=== PATIENT | female | born 1960 | race Caucasian/White ===

== ENCOUNTER → 2016-05-21 | Outpatient (CLI) | payer OTHER ==
[~2016-05-21] MED LIST: ACET500T36 PO; ARTH650T6 PO; AZIT500T2 PO; COUM4TAB PO; CYCL1TAB29 PO; DIGO0.25 PO; DILT60TA PO; ENOX40P SQ; FLUT1SPR5 EACH NARE; GABA400C5 PO; GABA800T PO; HYDR25TA5 PO; MEDR10TA7 PO; MELA5CAP2 PO; METF500T PO; METH125I2 IM; OMEP20TA PO; OXYC1TAB63 PO; PERC5TAB12 PO; PRED50 PO; VENTAER INH; WARF-20 PO
[2016-05-21 15:10] LABS: APTT (PATIENT) 38.7 SEC (24.3-30.1); INTERNATIONAL NORMALIZED RATIO 2.5 RATIO; PROTHROMBIN TIME - PATIENT 28.2 SEC (9.8-11.6)
[2016-05-21 15:16] LABS: AUTOMATED NEUTROPHIL # 3.6 TH/MM3 (1.8-7.7); BASOPHIL % 0.9 % (0.0-2.0); EOSINOPHIL # 0.1 TH/MM3 (0-0.4); EOSINOPHIL % 2.4 % (0.0-4.0); LYMPH % 25.7 % (9.0-44.0); LYMPHOCYTE # 1.4 TH/MM3 (1.0-4.8); MEAN CELL VOLUME 75.1 FL (80.0-100.0); MEAN CORPUSCULAR HEMOGLOBIN 23.3 PG (27.0-34.0); MONO % 6.8 % (0.0-8.0); NEUT % 64.2 % (16.0-70.0); PLATELET COUNT 228 TH/MM3 (150-450); RED BLOOD COUNT 4.67 MIL/MM3 (4.00-5.30); WHITE BLOOD COUNT 5.5 TH/MM3 (4.0-11.0)
[2016-05-21 15:19] LABS: HEMO FLAGS AUTO DIFF
[2016-05-21 15:22] LABS: ANION GAP 6 MEQ/L (5-15); AST (GOT) 17 U/L (15-37); BICARBONATE 33.5 MEQ/L (21.0-32.0); BLOOD UREA NITROGEN 14 MG/DL (7-18); CHLORIDE 102 MEQ/L (98-107); GLOMERULAR FILTRATION RATE 85 ML/MIN (>89); GLUCOSE,FASTING 179 MG/DL (74-99); POTASSIUM 4.2 MEQ/L (3.5-5.1); SODIUM (NA) 141 MEQ/L (136-145)
[2016-05-21 15:25] LABS: ALKALINE PHOSPHATASE 101 U/L (45-117); ALT (GPT) 35 U/L (10-53); TOTAL BILIRUBIN ADULT 0.3 MG/DL (0.2-1.0)
--- NOTE | 2016-05-21 16:14 | RADRPT ---
EXAM DATE/TIME: 05/21/2016 15:31 [place] COMPARISON: No previous studies available for comparison. INDICATIONS : Pre-op hysterectomy for uterine cancer. MEDICAL HISTORY : None. SURGICAL HISTORY : None. ENCOUNTER: Initial ACUITY: 1 day PAIN SCORE: 0/10 LOCATION: Bilateral chest FINDINGS: PA and lateral views of the chest demonstrate the lungs to be symmetrically aerated without evidence of mass, infiltrate or effusion. The cardiomediastinal contours are unremarkable. Osseous structure s are intact. CONCLUSION: No acute disease. Vishnu Oleary MD FACR on May 21, 2016 at 16:13 Board Certified Radiologist. This report was verified electronically.
[2016-05-21 19:11] LABS: OVALOCYTES 1+ (NORMAL); SCAN/DIFF AUTO DIFF CONFIRMED; STOMATOCYTES 1+ (NORMAL)
--- NOTE | 2016-05-21 22:01 | EKG ---
Date Performed: 05/21/2016 Time Performed: 14:53:15 PTAGE: 55 years EKG: Sinus rhythm NORMAL ECG PREVIOUS TRACING : 05/04/2016 06.14 Since previous tracing, no significant change noted DOCTOR: Antwan Iraheta Interpretating Date/Time 05/21/2016 22:00:38
== END ==
LOC: CPRE 14:34
PROVIDERS: ATTEND Obstetrics & Gynecology Gynecologic Oncology
DX: Z01.810 Encounter for preprocedural cardiovascular examination (principal); Z01.812 Encounter for preprocedural laboratory examination; C54.1 Malignant neoplasm of endometrium
CPT/HCPCS: 36415; 71020; 80053; 85025; 85610; 85730; 93005

== ENCOUNTER 2016-06-03 05:30 | Observation (INO) | payer OTHER ==
[~2016-06-03] VITALS: Ht 160 cm; Wt 130.4 kg
[~2016-06-03 05:30] MED LIST changes: -ARTH650T6 PO; -AZIT500T2 PO; -COUM4TAB PO; -ENOX40P SQ; -GABA400C5 PO; -MEDR10TA7 PO; -METH125I2 IM; -OXYC1TAB63 PO; -PERC5TAB12 PO; -PRED50 PO
[2016-06-03] MEDS ORDERED: HEPARIN SODIUM - SQ 10,000 UNITS/ML VIAL SQ PRN (06:00)
[2016-06-03] MEDS ORDERED: SODIUM CHLORID 0.9% 500 ML IV SCH (06:00)
[2016-06-03] MEDS ORDERED: SODIUM CHLORIDE FLUSH PRN IVF (06:00)
[2016-06-03] MEDS ORDERED: METOPROLOL TARTRATE 25 MG TAB PO PRN (06:00)
[2016-06-03] MEDS: LACTATED RINGER'S 1000 ML IV SCH (06:00)
[2016-06-03] MEDS ORDERED: INSULIN HUMAN REGULAR 1,000 UNITS/10 ML VIAL SQ PRN (06:00)
[2016-06-03] MEDS ORDERED: ceFAZolin 2 GM PREMIX 50 ML IV SCH (06:00)
[2016-06-03] MEDS ORDERED: ENOX40P SQ (06:12)
[2016-06-03 06:16] VITALS: BP 128/65; PULSE 83; RESP 18; TEMP 98.9; O2SAT 96
[2016-06-03 06:39] LABS: PROTHROMBIN TIME - PATIENT 10.7 SEC (9.8-11.6)
[2016-06-03] MEDS ORDERED: HYDROmorphone HCL PF 2 MG/ML VIAL ONE (06:53)
[2016-06-03] MEDS ORDERED: ONDANSETRON HCL 4 MG/2 ML VIAL ONE (06:53)
[2016-06-03] MEDS ORDERED: fentaNYL CITRATE 250 MCG/5 ML AMP ONE (06:53)
[2016-06-03] MEDS ORDERED: METHYLENE BLUE 10 MG/ML VIAL ONE (07:08)
[2016-06-03] MEDS ORDERED: LIDOCAINE 1%/EPINEPHrine 1:100,000 SOLN 20 ML VIAL ONE (07:09)
[2016-06-03] MEDS ORDERED: MIDAZOLAM HCL 2 MG/2 ML VIAL ONE (07:21)
[2016-06-03] MEDS ORDERED: ACETAMINOPHEN 1000 MG/100 ML VIAL IV ONE (07:21)
[2016-06-03] MEDS ORDERED: FAMOTIDINE 20 MG/2 ML VIAL ONE (07:21)
[2016-06-03] MEDS ORDERED: DEXAMETHASONE SOD PHOS 4 MG/ML VIAL ONE (07:21)
[2016-06-03] MEDS ORDERED: methylPREDNISolone SOD SUCC 125 MG/2 ML VIAL ONE (08:02)
[2016-06-03] MEDS ORDERED: LACTATED RINGER'S 1000 ML INJ 1,000 ML IV ONE (12:00)
[2016-06-03] MEDS ORDERED: ONDANSETRON HCL 4 MG/2 ML VIAL IV PUSH ONE (12:00)
[2016-06-03] MEDS ORDERED: PROPOFOL 200 MG/20 ML AMP IV ONE (12:00)
[2016-06-03] MEDS ORDERED: NEOSTIGMINE 3 MG/3 ML SYR IV ONE (12:00)
[2016-06-03] MEDS ORDERED: SODIUM CHLORIDE 0.9% FLUSH 5 ML FLUSH FLUSH PRN (12:15)
[2016-06-03] MEDS ORDERED: diphenhydrAMINE HCL 25 MG CAP PO PRN (12:15)
[2016-06-03] MEDS ORDERED: oxyCODONE/ACETAMINOPHEN 5 MG/325 MG TAB PO PRN (12:15)
[2016-06-03] MEDS ORDERED: LORazepam 0.5 MG TAB PO PRN (12:15)
[2016-06-03] MEDS ORDERED: HYDROmorphone HCL PF 1 MG/ML VIAL IVP PRN (12:15)
[2016-06-03] MEDS ORDERED: ONDANSETRON HCL 4 MG/2 ML VIAL IVP PRN (12:15)
[2016-06-03] MEDS ORDERED: *RESP: ALBUTEROL 2.5 MG/3 ML NEB (PRN) PERIprocedural Use ONLY NEB ONE (12:36)
[2016-06-03] MEDS ORDERED: DO NOT ADM ANY ANTICOAGULANT DRUGS XX PRN (12:36)
[2016-06-03] MEDS ORDERED: *morphine SULFATE 8 MG/ML PERIprocedure ONLY ONE ×2 (12:56→13:37)
[2016-06-03] MEDS: KETOROLAC TROMETHAMINE 30 MG/ML (IVP) VIAL IVP SCH ×3 (12:57→23:12)
[2016-06-03] MEDS: D5-1/2 NS + KCL 20 MEQ INJ 1,000 ML IV SCH ×2 (13:00→23:12)
[2016-06-03 13:56] VITALS: BP 135/61; PULSE 88; RESP 18; TEMP 97.1; O2SAT 95
--- NOTE | 2016-06-03 14:35 | PD.ONC.PN ---
Subjective Subjective Remarks Post op pt awake and talkative denies any nausea or vomiting mild pain and does not want any pain medication at this time. RN at bedside no complaints Objective Data Vital Signs Date Time Temp Pulse Resp B/P Pulse Ox O2 Delivery O2 Flow Rate FiO2 06/03/16 13:56 97.1 88 18 135/61 95 Date Time Temp Pulse Resp B/P Pulse Ox O2 Delivery O2 Flow Rate FiO2 06/03/16 06:16 98.9 83 18 128/65 96 Laboratory Results Laboratory Tests Test 06/03/16 06:10 Prothrombin Time 10.7 SEC Prothromb Time International 1.0 RATIO Ratio Blood Type O POSITIVE Antibody Screen NEGATIVE Administered Medications Medications (Trade) Dose Ordered Sig/Leonora Route PRN Reason Start Time Stop Time Status Last Admin Dose Admin Lactated Ringer's 1,000 ml @ 30 mls/hr Q24H IV 06/03/16 06:00 06/03/16 06:00 Potassium Chloride/Dextrose/ Sod Cl (D5-1/2 NS + KCl 20 Meq Inj) 1,000 ml @ 100 mls/hr Q10H IV 06/03/16 12:11 06/03/16 13:00 Ketorolac Tromethamine (Toradol Inj) 30 mg Q6H IVP 06/03/16 13:00 06/04/16 07:01 06/03/16 12:57 Objective Remarks GENERAL: Well-nourished, well-developed patient. SKIN: Warm and dry. HEAD: Normocephalic. EYES: No scleral icterus. No injection or drainage. CARDIOVASCULAR: Regular rate and rhythm without murmurs. RESPIRATORY: Breath sounds equal bilaterally. No accessory muscle use. cough GASTROINTESTINAL: SS are C/D/I, ecchymosis to lower abd from Lovenox inj EXTREMITIES: TEDs and SCDs MUSCULOSKELETAL: Adequate muscle tone. NEUROLOGICAL: No obvious focal deficit. Awake, alert, and oriented x3. PSYCHIATRIC: Appropriate mood and affect; insight and judgment normal. Assessment/Plan Problem List: (1) Post-operative state Status: Acute Plan: post op s/p RA lap hyst with BSO and pelvic lymph node bx post op orders in chart Shah to be D/Cd in am ADAT OOB to chair IS to bedside anticipate D/C home tomorrow Sterling Chung Jun 03, 2016 14:35
[2016-06-03] MEDS: GABAPENTIN 400 MG CAP PO SCH ×3 (14:46→20:49)
[2016-06-03] MEDS: oxyCODONE/ACETAMINOPHEN 5 MG/325 MG TAB PO PRN ×2 (14:46→18:25)
[2016-06-03] MEDS: DILTIAZEM HCL 60 MG TAB PO SCH ×2 (14:46→18:17)
[2016-06-03] MEDS: CYCLOBENZAPRINE HCL 10 MG TAB PO SCH ×2 (14:46→18:17)
[2016-06-03] MEDS: SODIUM CHLORIDE FLUSH BID IVF SCH ×2 (14:48→20:55)
[2016-06-03 16:00] VITALS: BP 120/62; PULSE 88; RESP 20; TEMP 98.6; O2SAT 97
[2016-06-03] MEDS: INSULIN NovoLIN REGULAR SUPPLEMENTAL SCALE SQ SCH ×2 (18:16→20:53)
[2016-06-03 20:00] VITALS: BP 118/56; PULSE 81; RESP 16; TEMP 98.8; O2SAT 96
[2016-06-03] MEDS: PANTOPRAZOLE SOD 20 MG DELAYED RELEASE TAB PO SCH (20:49)
[2016-06-03] MEDS: SODIUM CHLORIDE 0.9% FLUSH 5 ML FLUSH FLUSH SCH (20:55)
[2016-06-03] MEDS ORDERED: MELATONIN 5 MG TAB PO SCH (21:00)
[2016-06-03] MEDS: RESP: ALBUTEROL 2.5 MG/3 ML NEB (SCH) NEB (22:00)
[2016-06-04 00:06] VITALS: BP 116/59; PULSE 80; RESP 16; TEMP 97.4; O2SAT 93
[2016-06-04] MEDS: RESP: ALBUTEROL 2.5 MG/3 ML NEB (SCH) NEB ×2 (03:08→10:13)
[2016-06-04 05:54] VITALS: BP 101/59; PULSE 81; RESP 16; TEMP 98.4; O2SAT 96
[2016-06-04] MEDS: KETOROLAC TROMETHAMINE 30 MG/ML (IVP) VIAL IVP SCH (05:59)
[2016-06-04] MEDS: LACTATED RINGER'S 1000 ML IV SCH (06:00)
[2016-06-04] MEDS: INSULIN NovoLIN REGULAR SUPPLEMENTAL SCALE SQ SCH ×2 (06:08→11:30)
[2016-06-04] MEDS: oxyCODONE/ACETAMINOPHEN 5 MG/325 MG TAB PO PRN ×2 (06:09→13:31)
[2016-06-04 07:07] LABS: AUTOMATED NEUTROPHIL # 6.2 TH/MM3 (1.8-7.7); BASOPHIL % 0.4 % (0.0-2.0); EOSINOPHIL % 0.1 % (0.0-4.0); HEMATOCRIT 29.6 % (35.0-46.0); LYMPHOCYTE # 0.9 TH/MM3 (1.0-4.8); MEAN CELL VOLUME 75.2 FL (80.0-100.0); MEAN CORPUSCULAR HEMOGLOBIN 23.4 PG (27.0-34.0); MEAN CORPUSCULAR HGB CONC 31.1 % (32.0-36.0); MONO % 9.1 % (0.0-8.0); NEUT % 78.4 % (16.0-70.0); PLATELET COUNT 202 TH/MM3 (150-450); RED BLOOD COUNT 3.94 MIL/MM3 (4.00-5.30); WHITE BLOOD COUNT 7.9 TH/MM3 (4.0-11.0)
[2016-06-04 07:08] LABS: HEMO FLAGS AUTO DIFF
[2016-06-04 07:27] LABS: BICARBONATE 30.5 MEQ/L (21.0-32.0); POTASSIUM 4.1 MEQ/L (3.5-5.1)
[2016-06-04 08:00] VITALS: BP 109/55; PULSE 73; RESP 16; TEMP 97.8; O2SAT 93
[2016-06-04] MEDS ORDERED: OXYC1TAB63 PO (08:05)
[2016-06-04] MEDS: SODIUM CHLORIDE 0.9% FLUSH 5 ML FLUSH FLUSH SCH (09:00)
[2016-06-04] MEDS ORDERED: HYDROCHLOROTHIAZIDE 25 MG TAB PO SCH (09:00)
[2016-06-04] MEDS ORDERED: FLUTICASONE PROPIONATE 50 MCG/ACT 16 GM NASAL SPRAY EACH NARE SCH (09:00)
[2016-06-04] MEDS ORDERED: DIGOXIN 0.25 MG TAB PO SCH (09:00)
[2016-06-04] MEDS: SODIUM CHLORIDE FLUSH BID IVF SCH (09:00)
[2016-06-04 09:14] LABS: PLATELET MORPHOLOGY ENLARGED (NORMAL); SCAN/DIFF AUTO DIFF CONFIRMED
[2016-06-04] MEDS: GABAPENTIN 400 MG CAP PO SCH ×2 (09:17→13:31)
[2016-06-04] MEDS: PANTOPRAZOLE SOD 20 MG DELAYED RELEASE TAB PO SCH (09:17)
[2016-06-04] MEDS: CYCLOBENZAPRINE HCL 10 MG TAB PO SCH ×2 (09:17→13:30)
[2016-06-04] MEDS: DILTIAZEM HCL 60 MG TAB PO SCH ×2 (09:17→13:30)
[2016-06-04 10:18] VITALS: O2SAT 98
[2016-06-04 12:00] VITALS: BP 101/49; PULSE 69; RESP 16; TEMP 95.9; O2SAT 93
--- NOTE | 2016-06-12 19:40 | MD ---
cc: ALON VALERA M.D.,MOHAMUD LIND M.D., MD, KARLA A. MD ADMISSION DATE: 06/03/2016 DISCHARGE DATE: 06/04/2016 PROCEDURE PERFORMED: 06/03/2016: Laparoscopy with extensive lysis of adhesions, reduction of umbilical hernia, robotic-assisted laparoscopic hysterectomy, bilateral salpingo-oophorectomy, bilateral pelvic excisional lymph node biopsies, repair of umbilical hernia. DIAGNOSIS: 1. Endometrial adenocarcinoma. 2. Umbilical hernia. 3. Intraperitoneal adhesions, extensive. HOSPITAL COURSE: She did well during the first 24 hours after surgery and was quite awake this morning on rounds and had already been out of bed sitting up reading, no complaints, adequate pain control. Her ins and outs were 2925/1350. Labs this morning: Hemoglobin and hematocrit were 9.2 and 29.6, white count 7.9, platelets 202,000. Electrolytes essentially normal. BUN and creatinine 14 and 0.73 except for glucose elevated at 163. PHYSICAL EXAMINATION: VITAL SIGNS: Afebrile, pulse has been 81-88, respirations 16-20, blood pressure 101-135/56-61, O2 saturations while awake greater than or equal to 96%. GENERAL: She is alert and oriented x3 in no acute distress. LUNGS: Clear except for mild basilar rales. CARDIOVASCULAR: Irregular rate and rhythm but rate is controlled consistent with baseline. ABDOMEN: Soft. The laparoscopic as well as umbilical incisions are dry and clean and intact. ASSOCIATE DESIGNER: no bleeding. EXTREMITIES: Nontender. ASSESSMENT: Postop day #1 doing well in early postoperative period. FINDINGS: Preliminary pathology were discussed and reviewed. The potential value of an abdominal binder to assist in healing from hernia repair were discussed as well as the propensity for hernias to potentially recur and efforts to try to reduce chance of recurrence were reviewed. Activity restrictions discussed. Medication recommendations were made including that she can re-start her Coumadin tomorrow, to resume her other prior medications, although I have told her to stop taking Tylenol while she is taking the Percocet. She is aware that Percocet contains a full dose of Tylenol and to take both simultaneously would reach excessive and potentially toxic doses of Tylenol. Her questions were answered. She expressed good understanding. PLAN: Therefore anticipate discharge to home. She is to contact our office to schedule follow up in two weeks. She is to wear the abdominal binder any time she is up and out of bed for the next eight weeks except for bathing. She knows to resume medications as described above. Prescription provided for Percocet and our office number again made available should she have any questions or problems between now and the time of scheduled followup. She understands that full pathology discussion and review and any additional follow up and/or treatment recommendations will be made at the time of her postop check when we have that additional information. MD HEYDI Mims/LIVIA /8:10 AM /7:32 PM
--- NOTE | 2016-06-16 07:53 | MP ---
cc: LENA JONES M.D., KELLY L. MD MCNISH, KARLA A. MD DATE OF SURGERY 06/03/2016 PREOPERATIVE DIAGNOSES 1. Endometrial adenocarcinoma. 2. Umbilical hernia. POSTOPERATIVE DIAGNOSES 1. Endometrial adenocarcinoma. 2. Umbilical hernia. 3. Extensive intraperitoneal adhesions. HISTORY This is a 56-year-old female with postmenopausal bleeding who underwent D&C and hysteroscopy, found have an endometrial polyp as well as curettings from the endometrium which showed a large amount of tissue. The polyp itself was benign. The tissue showed grade 1 endometrioid adenocarcinoma. She was counseled regarding these findings. She was seen previously in our office and again in the preop holding area where I again explained the cornerstone of treatment is a hysterectomy to remove the source of tumor. I explained again that if the tumor spread beyond uterus, it tends to go to the pelvic lymph nodes and possibly the para-aortic lymph nodes. She again expressed apprehension about lymph node dissection. Her body weight is 126 kg. She has chronic lower extremity swelling already and is concerned about worsening with lymphedema associated with the lymph node dissection. In our discussion we agreed on hysterectomy, bilateral salpingo-oophorectomy and to survey the anatomy we would forego full lymphadenectomy. She understands that this may result in having microscopic metastatic disease that goes undetected and the ramifications thereof but we agreed to biopsy or remove any obviously enlarged lymph nodes or anything else that appeared suspicious and she was comfortable with this plan. FINDINGS The uterine cavity sounded to between 8 and 9 cm. The uterus was symmetrically enlarged. The tubes and ovaries grossly appeared normal. On each side of the pelvis, the right and left pelvis, there was a single enlarged prominent lymph node along the external iliac artery on the left and along the external iliac artery and vein on the right side. No other adenopathy could be detected in the pelvis. There was no suspicious adenopathy in the periaortic region. In the peritoneal cavity, there was an umbilical hernia with omentum extending into the hernia sac, although the omentum grossly appeared normal in that there were no peritoneal implants. There were extensive adhesions from the omentum to the anterior abdominal wall with the distal omentum fixed in the pelvis and there were adhesions in the posterior cul-de-sac and with the ovaries against the pelvic sidewall. The liver diaphragm edges appeared smooth. There were no changes in the peritoneum to suggest metastatic disease. Frozen section analysis of the uterus showed there to be a very large tumor occupying essentially the entire cavity of the uterus with deep myometrial invasion, no obvious endocervical extension. STATEMENT OF COMPLEXITY The complexly of this case was increased due to several reasons - 1) The body habitus of 126 kg. 2) The extensive intraperitoneal adhesions requiring significant additional amount of time to lyse adhesions to reduce the hernia to gain access to the peritoneal cavity, restore normal anatomy and accomplish surgical objectives. Modifier should be applied accordingly. PROCEDURE The patient was taken to the operating room, placed in dorsal lithotomy position. After general endotracheal anesthesia was administered, a time-out was undertaken. The patient was identified by sight recognition and hospital ID bracelet and the proposed procedure was reviewed and confirmed. She was carefully positioned in padded Edward stirrups. Her arms were padded and secured to her sides and she was further secured to the operating table with eggcrate padding and tape in across chest, over the shoulder fashion. All sites were noted to be properly aligned with no malalignments or pressure points. She was prepped in sterile fashion, draped below the waist, placed in high lithotomy position. The cervix was grasped, uterine cavity sounded, the cervix dilated and V-Care manipulator was inserted and secured in the usual fashion. She was turned to low lithotomy position. We completed draping in anticipation of laparoscopy, confirmed an orogastric airway was in the stomach on suction. With manual elevation of the abdominal wall and direct laparoscopic visualization, a 5-mm cannula placed in the left upper abdomen and an atraumatic entry was confirmed. Carbon dioxide gas was insufflated. An 8-mm cannula was placed in the left lateral abdomen and sharp and blunt dissection were used to take down adhesions to initiate lysis of adhesions until a central safe placed in the abdominal wall was cleared above the umbilicus and a 12-mm cannula was introduced. Additional lysis of adhesion were carried out until an 8-mm cannula could be placed in the right upper quadrant. Additional dissection, blunt and sharp, reduced the hernia sac, removed the omentum and sharp dissection was used to resect the hernia sac. Additional lysis of adhesion were carried out distally to mobilize the omentum. She is placed in Trendelenburg position. Peritoneal washings were obtained for cytology. The initial 5-mm cannula was exchanged for an 8-mm cannula. The small bowel was folded back on the mesenteric root to the extent possible. Three Ray-Lona sponges were placed around the root of the small bowel mesentery. The robotic system was brought into the operative field and attached in the usual fashion. Monopolar scissors, fenestrated bipolar forceps and ProGrasp manipulators were placed in arms #1, 2 and 3 respectively and I took my place at the surgeon's console. Additional lysis of adhesions was carried out to mobilize the ovaries, free adhesions from the cul-de-sac to mobilize the colon which was overlying the left pelvic sidewall structures. The right round ligament was isolated, cauterized, transected. The anterior and posterior leaves of the broad ligament were opened. The right ureter was identified. The right infundibulopelvic ligament was isolated. The infundibulopelvic ligament was isolated, cauterized and transected. The posterior peritoneum was opened along the right side of the uterus and cervix and the right vesicouterine peritoneum was dissected off the lower uterine segment and cervix. Right uterine vessels were skeletonized, cauterized and transected as were the cardinal, paracervical and uterosacral ligaments. Attention was directed toward the left side where the left round ligament was isolated, cauterized and transected. The anterior and posterior leaves of the broad ligament were opened. The left ureter was identified. The left infundibulopelvic ligament was isolated. The intervening peritoneum was opened. The infundibulopelvic ligament was cauterized and transected. Posterior peritoneum opened along the left side of uterus and cervix. The left vesicouterine peritoneum was dissected off the lower uterine segment and cervix and the uterine vessels were skeletonized. They were then cauterized and transected as were the cardinal, paracervical and uterosacral ligaments. Inspection of the retroperitoneal lymph nodes was carried out with findings as described above. The para-aortic region did not show any obviously enlarged lymph nodes. There was a single enlarged prominent lymph node in the pelvis on each side and as per our preoperative discussion and agreement these lymph nodes were resected. Dissection was initiated on the left where retroperitoneal dissection was carried out. The paravesical and pararectal spaces were opened. Bipolar cautery and sharp dissection were used to free the lymph node and to remove it from its attachment overlying the vessels and this was placed in the right paracolic gutter for later retrieval. Similar steps were carried out on the right side where the right paravesical and pararectal spaces were opened and the retroperitoneal dissection was initiated. Bipolar cautery and sharp dissection were used to remove the enlarged lymph node from its overlying position overlying the vessels. It was placed in the right paracolic gutter for later retrieval. Visual and palpable inspection revealed no other overtly enlarged lymph nodes or suspicious changes. Attention was redirected to the pelvis where a colpotomy was performed the cervix from the upper vagina. The specimen was withdrawn transvaginally which included uterus, cervix, tubes and ovaries and a pneumooccluder balloon was placed in the vagina to maintain pneumoperitoneum. EndoCatch bag was then introduced transvaginally and the pelvic lymph nodes were placed and withdrawn transvaginally and then each of the three Ray-Lona sponges that had been placed in the peritoneal cavity, each were removed individually using a ring forceps. Each were inspected and noted to be removed in their entirety. There were no remaining foreign objects in the peritoneal cavity. Instruments 1 and 3 were exchanged for needle drivers as a 0 Vicryl suture was introduced. The vaginal cuff was closed starting at the left corner, full-thickness closure including the posterior peritoneum, edge of the uterosacral ligament, tied via instrument tie. The closure was held on countertraction as a running full-thickness continuous closure was carried across the vaginal apex to the contralateral corner where it was similarly secured, fixed, tied via instrument tie. The needle was cut and removed. The pelvis was thoroughly irrigated. The integrity of the bladder was checked by filling the bladder with saline dyed with methylene blue. It distended nicely under pressure. No areas of thinning in the bladder, no extravasation of dye and a nice margin between the bladder edge and the vaginal cuff suture line. Good peristalsis of ureters bilaterally and the bladder was drained. The robotic instruments were removed. The robotic system was disengaged from the operative field. I reentered the bedside under sterile condition. An incision was made overlying the umbilicus and, using a fascial closure needle pass apparatus, 0 PDS sutures were placed in interrupted fashion. Three of them were placed in the fascial defect that was estimated to be approximately 1.5 to 2 cm in diameter and tied securely which rendered the fascia completely airtight and hemostatic. 3-0 Vicryl sutures were then used to close the overlying skin and subcutaneous tissue. The 12-mm fascial defect above the umbilicus was closed in a similar fashion using 0 Vicryl sutures with a needle pass apparatus. The sutures were tied securely which rendered the fascia completely airtight and hemostatic. The remaining cannulas were withdrawn. Carbon dioxide gas was removed from the peritoneal cavity. 3-0 Vicryl subcutaneous, 3-0 Vicryl subcuticular and Steri-Strips and dry sterile dressing were placed over these incisions. She was returned to dorsal lithotomy position. Pelvic exam confirmed the vaginal cuff was well-supported. There were no vaginal lacerations, no remaining foreign objects in the vagina and final counts were correct. She was returned to dorsal supine position and was pending reversal of anesthesia when I left the operating room to precede her to the Post-Anesthesia Care Unit and to speak to family members who were waiting in the surgical waiting area. MD HEYDI Mims/AMANDA /6:37 AM /7:24 AM
[2016-06-17] MEDS ORDERED: CYCL1TAB29 PO (17:27)
[2016-06-22] MEDS ORDERED: METF500T PO ×2 (11:45→11:46)
[2016-07-15] MEDS ORDERED: MEDR10TA7 PO (15:06)
[2016-08-05] MEDS ORDERED: OMEP20TA PO (11:39)
[2016-08-11] MEDS ORDERED: WARF-20 PO ×2 (09:18→09:19)
[2016-08-11] MEDS ORDERED: GABA400C5 PO (09:28)
[2016-08-17] MEDS ORDERED: WARF-20 PO (12:43)
[2016-09-09] MEDS ORDERED: GABA800T PO (14:43)
[2016-09-13] MEDS ORDERED: HYDR25TA5 PO ×2 (10:11→10:54)
[2016-09-13] MEDS ORDERED: GABA800T PO ×2 (10:50→10:55)
[2016-09-13] MEDS ORDERED: WARF-20 PO (10:54)
[2016-09-14] MEDS ORDERED: ARTH650T6 PO (15:08)
[2016-09-14] MEDS ORDERED: DIGO0.25 PO (15:17)
[2016-09-14] MEDS ORDERED: OMEP20TA PO (15:17)
[2016-09-14] MEDS ORDERED: DILT60TA PO (15:17)
[2016-09-14] MEDS ORDERED: GABA400C5 PO (15:17)
[2016-09-14] MEDS ORDERED: CYCL1TAB29 PO (15:17)
[2016-09-14] MEDS ORDERED: AZIT500T2 PO (15:18)
[2016-09-14] MEDS ORDERED: VENTAER INH (15:20)
[2016-09-14] MEDS ORDERED: PRED50 PO (15:20)
[2016-09-14] MEDS ORDERED: METH125I2 IM (15:34)
[2016-09-15] MEDS ORDERED: WARF-20 PO (10:06)
[2016-09-28] MEDS ORDERED: MEDR10TA7 PO (15:01)
[2016-10-21] MEDS ORDERED: METF500T PO (15:09)
[2016-11-09] MEDS ORDERED: HYDR25TA5 PO (15:02)
== END 2016-06-04 14:03 | disposition home or self-care (01) ==
LOC: HSDC 05:30 → HSDI 12:16 → HOCA 13:56
PROVIDERS: ADMIT Obstetrics & Gynecology Gynecologic Oncology; ATTEND Obstetrics & Gynecology Gynecologic Oncology
DX: C54.1 Malignant neoplasm of endometrium (principal); K42.9 Umbilical hernia without obstruction or gangrene; K66.0 Peritoneal adhesions (postprocedural) (postinfection); E11.9 Type 2 diabetes mellitus without complications; Z79.84 Long term (current) use of oral hypoglycemic drugs; Z79.01 Long term (current) use of anticoagulants
CPT/HCPCS: 00320; 00840; 38510; 49652; 58552; 80048; 82948; 85025; 85610; 86850; 86900; 86901; 88302; 88305; 88309; 88331; 94640; 94664; G0378; J0131; J0690; J1100; J1644; J1885; J2250; J2270; J2405; J2710; J2930; J3010; J3480; J7120; J7613; 88307; J1170

== ENCOUNTER → 2016-07-07 | Outpatient (CLI) | payer OTHER ==
[~2016-07-07] MED LIST changes: -ACET500T36 PO; +ARTH650T6 PO; +AZIT500T2 PO; +GABA400C5 PO; +MEDR10TA7 PO; +METH125I2 IM; +OXYC1TAB63 PO; +PRED50 PO
[2016-07-07 13:35] LABS: INTERNATIONAL NORMALIZED RATIO 1.7 RATIO
== END ==
LOC: CLAB 13:07
PROVIDERS: ATTEND Nurse Practitioner Family
DX: E05.90 Thyrotoxicosis, unspecified without thyrotoxic crisis or storm (principal); I48.2 Chronic atrial fibrillation
CPT/HCPCS: 36415; 84439; 85610

== ENCOUNTER → 2016-07-13 | Outpatient (CLI) | payer OTHER ==
[2016-07-13 13:15] LABS: INTERNATIONAL NORMALIZED RATIO 2.5 RATIO; PROTHROMBIN TIME - PATIENT 29.2 SEC (9.8-11.6)
== END ==
LOC: CLAB 12:39
PROVIDERS: ATTEND Family Medicine
DX: I48.2 Chronic atrial fibrillation (principal)
CPT/HCPCS: 36415; 85610

== ENCOUNTER → 2016-08-23 | Outpatient (CLI) | payer OTHER ==
[~2016-08-23] MED LIST changes: -OXYC1TAB63 PO
[2016-08-23 14:14] LABS: INTERNATIONAL NORMALIZED RATIO 2.6 RATIO; PROTHROMBIN TIME - PATIENT 29.9 SEC (9.8-11.6)
== END ==
LOC: CLAB 13:50
PROVIDERS: ATTEND Nurse Practitioner Family
DX: E05.90 Thyrotoxicosis, unspecified without thyrotoxic crisis or storm (principal); I48.2 Chronic atrial fibrillation
CPT/HCPCS: 84439; 85610

== ENCOUNTER → 2016-09-02 | Outpatient (CLI) | payer OTHER ==
[2016-09-02 13:21] LABS: INTERNATIONAL NORMALIZED RATIO 2.5 RATIO; PROTHROMBIN TIME - PATIENT 28.4 SEC (9.8-11.6)
== END ==
LOC: CLAB 12:49
PROVIDERS: ATTEND Family Medicine
DX: I48.2 Chronic atrial fibrillation (principal); E05.90 Thyrotoxicosis, unspecified without thyrotoxic crisis or storm
CPT/HCPCS: 36415; 84443; 85610

== ENCOUNTER → 2016-09-27 | Outpatient (CLI) | payer OTHER ==
[~2016-09-27] MED LIST changes: -GABA800T PO; -METH125I2 IM
[2016-09-27 15:45] LABS: INTERNATIONAL NORMALIZED RATIO 2.4 RATIO; PROTHROMBIN TIME - PATIENT 27.6 SEC (9.8-11.6)
== END ==
LOC: CLAB 15:02
PROVIDERS: ATTEND Family Medicine
DX: I48.2 Chronic atrial fibrillation (principal)
CPT/HCPCS: 36415; 85610

== ENCOUNTER → 2016-12-10 | Outpatient (CLI) | payer OTHER ==
[2016-12-10 16:03] LABS: INTERNATIONAL NORMALIZED RATIO 2.6 RATIO; PROTHROMBIN TIME - PATIENT 30.4 SEC (9.8-11.6)
== END ==
LOC: CLAB 15:26
PROVIDERS: ATTEND Family Medicine
DX: I48.2 Chronic atrial fibrillation (principal)
CPT/HCPCS: 36415; 85610

== ENCOUNTER → 2017-02-28 | Outpatient (CLI) | payer OTHER ==
[~2017-02-28] MED LIST changes: +MELA5TAB15 PO
[2017-02-28 15:43] LABS: INTERNATIONAL NORMALIZED RATIO 2.2 RATIO; PROTHROMBIN TIME - PATIENT 25.7 SEC (9.8-11.6)
== END ==
LOC: CLAB 15:07
PROVIDERS: ATTEND Family Medicine
DX: I48.2 Chronic atrial fibrillation (principal)
CPT/HCPCS: 36415; 85610

== ENCOUNTER 2017-07-16 01:22 | Emergency (ER) | payer OTHER ==
[~2017-07-16] VITALS: Ht 160 cm; Wt 125.0 kg
[~2017-07-16 01:22] MED LIST changes: -AZIT500T2 PO; +CYCL10TA PO; -CYCL1TAB29 PO; -FLUT1SPR5 EACH NARE; +MELA5 PO; -MELA5CAP2 PO; -MELA5TAB15 PO; -OMEP20TA PO; +OMEP20TA93 PO; -PRED50 PO
[2017-07-16 01:24] VITALS: BP 196/94; PULSE 110; RESP 18; TEMP 98.5; O2SAT 98
[2017-07-16] MEDS ORDERED: SODIUM CHLOR 0.9% 1000 ML INJ 1,000 ML IV SCH (01:51)
[2017-07-16] MEDS ORDERED: SODIUM CHLORIDE 0.9% FLUSH 10 ML FLUSH IV FLUSH PRN (02:00)
[2017-07-16] MEDS ORDERED: MORPHINE SULFATE 2 MG/ML INJ IV PUSH ONE (02:00)
[2017-07-16 02:49] LABS: AUTOMATED NEUTROPHIL # 4.3 TH/MM3 (1.8-7.7); BASOPHIL % 0.6 % (0.0-2.0); EOSINOPHIL # 0.2 TH/MM3 (0-0.4); EOSINOPHIL % 2.4 % (0.0-4.0); HEMATOCRIT 35.9 % (35.0-46.0); HEMOGLOBIN 12.3 GM/DL (11.6-15.3); LYMPH % 24.5 % (9.0-44.0); LYMPHOCYTE # 1.6 TH/MM3 (1.0-4.8); MEAN CELL VOLUME 79.5 FL (80.0-100.0); MEAN CORPUSCULAR HEMOGLOBIN 27.2 PG (27.0-34.0); MEAN CORPUSCULAR HGB CONC 34.2 % (32.0-36.0); MEAN PLATELET VOLUME 9.2 FL (7.0-11.0); MONOCYTE # 0.5 TH/MM3 (0-0.9); NEUT % 64.5 % (16.0-70.0); PLATELET COUNT 264 TH/MM3 (150-450); RED BLOOD COUNT 4.52 MIL/MM3 (4.00-5.30); RED CELL DISTRIBUTION WIDTH 15.5 % (11.6-17.2); WHITE BLOOD COUNT 6.6 TH/MM3 (4.0-11.0)
[2017-07-16 02:54] LABS: INTERNATIONAL NORMALIZED RATIO 2.1 RATIO; PROTHROMBIN TIME - PATIENT 21.4 SEC (9.8-11.6)
[2017-07-16 03:02] LABS: BACTERIA, URINE RARE /hpf; BILIRUBIN, URINE NEG (NEG); BLOOD, URINE NEG (NEG); GLUCOSE,URINE 150 mg/dL (NEG); HYALINE CAST, URINE 7 /lpf (RARE); KETONE, URINE TRACE mg/dL (NEG); MUCUS URINE FEW /lpf (OCC); NITRITE,URINE NEG (NEG); PH, URINE 5.5 (5.0-8.5); SQUAMOUS EPITHELIAL CELL URINE 1 /hpf (0-5); URINE COLOR YELLOW (YELLW/STRAW); URINE LEUKOCYTE ESTERASE TRACE (NEG)
[2017-07-16 03:08] LABS: ALBUMIN 3.7 GM/DL (3.4-5.0); ALT (GPT) 41 U/L (10-53); AST (GOT) 19 U/L (15-37); BICARBONATE 29.3 MEQ/L (21.0-32.0); BLOOD UREA NITROGEN 15 MG/DL (7-18); CHLORIDE 106 MEQ/L (98-107); CREATININE 0.69 MG/DL (0.50-1.00); GLOMERULAR FILTRATION RATE 87 ML/MIN (>89); GLUCOSE,RANDOM 204 MG/DL (74-106); SODIUM (NA) 141 MEQ/L (136-145)
[2017-07-16 03:10] LABS: ALKALINE PHOSPHATASE 101 U/L (45-117); TOTAL BILIRUBIN ADULT 0.3 MG/DL (0.2-1.0); TOTAL PROTEIN 7.2 GM/DL (6.4-8.2)
--- NOTE | 2017-07-16 03:34 | PD ---
HPI Chief Complaint: Flank/Kidney Pain Time Seen by Provider: 01:46 Travel History International Travel<30 days: No Contact w/Intl Traveler<30days: No Traveled to known affect area: No History of Present Illness HPI 57-year-old female with history of endometrial cancer status post hysterectomy, right adrenalectomy, here for evaluation of right flank pain. Patient reports that the pain started this evening, described as sharp, worse with movements, severe, nonradiating. She denies urinary symptoms such as hematuria or dysuria. No fevers or chills. No nausea or vomiting. PFSH Past Medical History Hx Anticoagulant Therapy: Yes Arthritis: Yes (OA) Asthma: Yes Atrial Fibrillation: Yes Autoimmune Disease: No Blood Disorders: No Anxiety: No Depression: No Heart Rhythm Problems: No Cancer: Yes (UTERINE, GANGLION CYST) Cardiovascular Problems: Yes (A-FIB) High Cholesterol: No Chemotherapy: No Chest Pain: No Congestive Heart Failure: No COPD: No Cerebrovascular Accident: No Diabetes: Yes (TYPE 1) Patient Takes Glucophage: Yes Diminished Hearing: No Endocrine: No GERD: Yes Glaucoma: No Genitourinary: No Headaches: No Hepatitis: No Hiatal Hernia: No Hypertension: Yes Immune Disorder: No Kidney Stones: No Musculoskeletal: Yes (DEGENERATIVE DISK DISEASE) Neurologic: Yes (NEURAPATHY, VERTIGO) Psychiatric: No Reproductive: Yes Respiratory: Yes (ASTHMA) Migraines: No Myocardial Infarction: No Radiation Therapy: No Renal Failure: No Seizures: No Sickle Cell Disease: No Sleep Apnea: No Thyroid Disease: No Ulcer: No Menopausal: Yes Past Surgical History Abdominal Surgery: Yes (HERNIA REPAIR) AICD: No Appendectomy: No Arteriovenous Shunt: No Cardiac Surgery: No Section: Yes Cholecystectomy: No Ear Surgery: No Endocrine Surgery: Yes (ADRENAL GLAND TUMOR REMOVED, RIGHT ADRENAL GLAND REMOVED) Eye Surgery: No Genitourinary Surgery: No Gynecologic Surgery: Yes (VAGINAL POLYPS REMOVED) Hysterectomy: Yes Insulin Pump: No Joint Replacement: No Oral Surgery: No Pacemaker: No Thoracic Surgery: No Other Surgery: Yes Social History Alcohol Use: No Tobacco Use: No Substance Use: No Allergies-Medications (Allergen,Severity, Reaction): Coded Allergies: No Known Allergies (Verified Adverse Reaction, Unknown, 07/16/17) Reported Meds & Prescriptions Reported Meds & Active Scripts Active Digoxin 0.25 Mg Tab 0.25 Mg PO DAILY Hydrochlorothiazide 25 Mg Tab 25 Mg PO DAILY Metformin (Metformin HCl) 500 Mg Tab 500 Mg PO BIDPC With meals Warfarin 4 Mg Tab 8 Mg PO DAILY Ventolin Hfa 18 GM Inh (Albuterol Sulfate) 90 Mcg/Act Aer 2 Puff INH Q4H PRN Gabapentin 400 Mg Cap 2 Tab PO QID Omeprazole 20 Mg Tab 20 Mg PO BID Flexeril (Cyclobenzaprine HCl) 10 Mg Tab 10 Mg PO TID Diltiazem (Diltiazem HCl) 60 Mg Tab 60 Mg PO TID Melatonin 5 Mg Tab 5 Mg PO HS Medroxyprogesterone Acetate 10 Mg Tab 20 Mg PO DAILY Start day 21 Reported Arthritis Pain Reliever ER 8 HR (Acetaminophen) 650 Mg Tab 1,300 Mg PO Q8HR PRN Review of Systems Except as stated in HPI: all other systems reviewed are Neg Physical Exam Narrative GENERAL: Well-developed, well-nourished, overweight, comfortable, no apparent distress. SKIN: Focused skin assessment warm/dry. No rash. HEAD: Atraumatic. Normocephalic. EYES: Pupils equal and round. No scleral icterus. No injection or drainage. ENT: No nasal bleeding or discharge. Mucous membranes pink and moist. NECK: Trachea midline. No JVD. CARDIOVASCULAR: Regular rate and rhythm. RESPIRATORY: No accessory muscle use. Clear to auscultation. Breath sounds equal bilaterally. GASTROINTESTINAL: Abdomen soft, non-tender, nondistended. MUSCULOSKELETAL: No obvious deformities. No clubbing. No cyanosis. No edema. Moderate right CVA tenderness. No midline vertebral step-off or tenderness. NEUROLOGICAL: Awake and alert. No obvious cranial nerve deficits. Motor grossly within normal limits. Normal speech. PSYCHIATRIC: Appropriate mood and affect; insight and judgment normal. Data Data Last Documented VS Vital Signs Date Time Temp Pulse Resp B/P (MAP) Pulse Ox O2 Delivery O2 Flow Rate FiO2 07/16/17 06:40 98 18 176/84 (114) 100 07/16/17 06:40 Room Air 07/16/17 01:24 98.5 Orders Orders Complete Blood Count With Diff (07/16/17 01:51) Comprehensive Metabolic Panel (07/16/17 01:51) Lipase (07/16/17 01:51) Prothrombin Time / Inr (Pt) (07/16/17 01:51) Act Partial Throm Time (Ptt) (07/16/17 01:51) Urinalysis - C+S If Indicated (07/16/17 01:51) Ct Abd/Pel W Iv Contrast(Rout) (07/16/17 01:51) Iv Access Insert/Monitor (07/16/17 01:51) Ecg Monitoring (07/16/17 01:51) Oximetry (07/16/17 01:51) Sodium Chlor 0.9% 1000 Ml Inj (Ns 1000 M (07/16/17 01:51) Sodium Chloride 0.9% Flush (Ns Flush) (07/16/17 02:00) Morphine Inj (Morphine Inj) (07/16/17 02:00) Pantoprazole Inj (Protonix Inj) (07/16/17 04:45) Iohexol 350 Inj (Omnipaque 350 Inj) (07/16/17 05:49) Ketorolac Inj (Toradol Inj) (07/16/17 06:45) Labs Laboratory Tests Test 07/16/17 02:16 White Blood Count 6.6 TH/MM3 Red Blood Count 4.52 MIL/MM3 Hemoglobin 12.3 GM/DL Hematocrit 35.9 % Mean Corpuscular Volume 79.5 FL Mean Corpuscular Hemoglobin 27.2 PG Mean Corpuscular Hemoglobin Concent 34.2 % Red Cell Distribution Width 15.5 % Platelet Count 264 TH/MM3 Mean Platelet Volume 9.2 FL Neutrophils (%) (Auto) 64.5 % Lymphocytes (%) (Auto) 24.5 % Monocytes (%) (Auto) 8.0 % Eosinophils (%) (Auto) 2.4 % Basophils (%) (Auto) 0.6 % Neutrophils # (Auto) 4.3 TH/MM3 Lymphocytes # (Auto) 1.6 TH/MM3 Monocytes # (Auto) 0.5 TH/MM3 Eosinophils # (Auto) 0.2 TH/MM3 Basophils # (Auto) 0.0 TH/MM3 CBC Comment DIFF FINAL Differential Comment Prothrombin Time 21.4 SEC Prothromb Time International Ratio 2.1 RATIO Activated Partial Thromboplast Time 34.3 SEC Urine Color YELLOW Urine Turbidity CLEAR Urine pH 5.5 Urine Specific Keymar 1.032 Urine Protein TRACE mg/dL Urine Glucose (UA) 150 mg/dL Urine Ketones TRACE mg/dL Urine Occult Blood NEG Urine Nitrite NEG Urine Bilirubin NEG Urine Urobilinogen 2.0 MG/DL Urine Leukocyte Esterase TRACE Urine RBC 1 /hpf Urine WBC 2 /hpf Urine Squamous Epithelial Cells 1 /hpf Urine Bacteria RARE /hpf Urine Hyaline Casts 7 /lpf Urine Mucus FEW /lpf Microscopic Urinalysis Comment CULT NOT INDICATED Blood Urea Nitrogen 15 MG/DL Creatinine 0.69 MG/DL Random Glucose 204 MG/DL Total Protein 7.2 GM/DL Albumin 3.7 GM/DL Calcium Level 10.0 MG/DL Alkaline Phosphatase 101 U/L Aspartate Amino Transf (AST/SGOT) 19 U/L Alanine Aminotransferase (ALT/SGPT) 41 U/L Total Bilirubin 0.3 MG/DL Sodium Level 141 MEQ/L Potassium Level 3.6 MEQ/L Chloride Level 106 MEQ/L Carbon Dioxide Level 29.3 MEQ/L Anion Gap 6 MEQ/L Estimat Glomerular Filtration Rate 87 ML/MIN Lipase 160 U/L MDM Medical Decision Making Medical Screen Exam Complete: Yes Emergency Medical Condition: Yes Differential Diagnosis Pyelonephritis, nephrolithiasis, ureterolithiasis, hepatobiliary disease, colitis, musculoskeletal pain Narrative Course Initial vital signs show heart rate 110, blood pressure 196/94, pulse ox 98% on room air, oral temp of 98.5F. CBC: WBC 6.6, hemoglobin 12.3, hematocrit 35.9, platelets 264. CMP is remarkable for random glucose 204, otherwise unremarkable. Lipase is 160. UA: 150 glucose, trace ketones, trace site esterase, rare bacteria, negative nitrites, not suggestive of UTI. CT abdomen pelvis: CONCLUSION: 1. Interval development of a fat containing umbilical hernia. 2. Other findings including calcified gallstones,, right adrenalectomy, and hysterectomy, unchanged from prior CT. Patient was made aware of all findings. She is resting comfortably. She has been ambulating to and from the restroom while in the emergency department. She has no red flags for low back pain. No rash. She was provided a copy of her CT abdomen pelvis report. She has an appointment with her gynecology/ oncologist physicians this week. I told her to bring the CT report to them. At this point she is stable for discharge home with outpatient follow-up. She was advised on when to return to the emergency department. She verbalizes understanding and agreement with plan. Diagnosis Primary Impression: Flank pain, acute Referrals: Primary Care Physician 3 days Additional Instructions: Follow-up with a primary care physician this week. Follow-up with your medication manager/oncologist this week. Return to the emergency department for worsening symptoms or any other concerns. Scripts Hydrocodone-Acetaminophen (Hydrocodone-Acetaminophen) 5-325 mg Tab 1 TAB PO Q6H Y for PAIN, #15 TAB 0 Refills Prov: Chaitanya Valero MD 07/16/17 Disposition: 01 DISCHARGE HOME Condition: Stable Chaitanya Valero MD Jul 16, 2017 03:34
[2017-07-16] MEDS ORDERED: PANTOPRAZOLE SODIUM 40 MG VIAL IV PUSH ONE (04:45)
[2017-07-16] MEDS ORDERED: IOHEXOL 350 MG/ML 10 ML VIAL (for RAD DIAG) IVCONTRAST ONE (05:49)
[2017-07-16 06:40] VITALS: BP 176/84; PULSE 98; RESP 18; O2SAT 100
[2017-07-16] MEDS ORDERED: KETOROLAC TROMETHAMINE 30 MG/ML (IVP) VIAL IV PUSH ONE (06:45)
--- NOTE | 2017-07-16 06:46 | RADRPT ---
EXAM DATE/TIME: 07/16/2017 05:35 [facility] COMPARISON: CT ABDOMEN & PELVIS W CONTRAST, July 19, 2016, 14:13. INDICATIONS : Lower abdominal pain. IV CONTRAST: 100 cc Omnipaque 350 (iohexol) IV ORAL CONTRAST: No oral contrast ingested. RADIATION DOSE: 31.88 CTDIvol (mGy) ; Combined studies - Thorax/Abdomen/Pelvis MEDICAL HISTORY : Gastroesophageal reflux disease. Hypertension. Diabetes mellitus type 1.Uterine cancer. SURGICAL HISTORY : Hysterectomy. Hernia repair. Adrenal mass removal. Adrenalectomy. ENCOUNTER: Initial ACUITY: 1 day PAIN SCALE: 5/10 LOCATION: lower quadrant abdomen and back. TECHNIQUE: Volumetric scanning of the abdomen and pelvis was performed. Using automated exposure control and ad justment of the mA and/or kV according to patient size, radiation dose was kept as low as reasonably achievable to obtain optimal diagnostic quality images. DICOM format image data is available electro nically for review and comparison. FINDINGS: LOWER LUNGS: The visualized lower lungs are clear. LIVER: Homogeneous density without lesion. There is no dilation of the biliary tree. Multiple small calcif ied gallstone similar to prior.. SPLEEN: Normal size without lesion. PANCREAS: Within normal limits. KIDNEYS: Normal in size and shape. There is no mass, stone or hydronephrosis. ADRENAL GLANDS: The left adrenal gland is normal in appearance. Right adrenalectomy with multiple hemoclips at the s urgical site. VASCULAR: There is no aortic aneurysm. BOWEL/MESENTERY: The stomach, small bowel, and colon demonstrate no acute abnormality. There is no free intraperitone al air or fluid. ABDOMINAL WALL: Minimal development of an umbilical hernia containing only fat with separation between the rectus mus cles measuring 3.9 cm. Herniation of retroperitoneal fat in the posterior right upper quadrant proba yohan related to the surgical approach from adrenalectomy, stable in appearance when compared to prior. RETROPERITONEUM: There is no lymphadenopathy. BLADDER: No wall thickening or mass. REPRODUCTIVE: Hysterectomy. No mass or free fluid. INGUINAL: There is no lymphadenopathy or hernia. MUSCULOSKELETAL: Within normal limits for patient age. CONCLUSION: 1. Interval development of a fat containing umbilical hernia. 2. Other findings including calcified gallstones,, right adrenalectomy, and hysterectomy, unchanged f rom prior CT. Wesley Rubio MD on July 16, 2017 at 6:40 Board Certified Radiologist. This report was verified electronically.
[2017-07-16] MEDS ORDERED: HYDR-3516 PO (06:58)
== END 2017-07-16 07:14 | disposition home or self-care (01) ==
LOC: NEPE 01:22
DX: R10.9 Unspecified abdominal pain (principal); K42.9 Umbilical hernia without obstruction or gangrene; K80.80 Other cholelithiasis without obstruction; M19.90 Unspecified osteoarthritis, unspecified site; J45.909 Unspecified asthma, uncomplicated; I48.91 Unspecified atrial fibrillation; K21.9 Gastro-esophageal reflux disease without esophagitis; E10.9 Type 1 diabetes mellitus without complications; I10 Essential (primary) hypertension
CPT/HCPCS: 74177; 80053; 81001; 83690; 85025; 85610; 85730; 96361; 96374; 96375; 99284; C9113; J1885; J2270; J7030; Q9967